=== PATIENT | male | born 1955 | race Caucasian/White ===

== ENCOUNTER 2023-10-13 09:01 | Outpatient (REF) | payer MEDICARE, SELFPAY ==
[2023-10-13 12:49] LABS: ~HepC Num1 12.93 S/CO (0.00-0.79); ~Hepatitis C Antibody Reactive (Nonreactive)
[2023-10-13 13:03] LABS: Alanine Aminotransferase 31 U/L (0-40); Albumin Level 4.4 g/dL (3.5-5.0); Alkaline Phosphatase 109 U/L (39-117); Anion Gap 16 (12-20); Aspartate Amino Transferase 24 U/L (5-37); Blood Urea Nitrogen 15 mg/dL (9-16); Calcium 9.5 mg/dL (8.4-10.2); Carbon Dioxide 23 mmol/L (22-29); Chloride 101 mmol/L (96-108); Cholesterol 92 mg/dL (<200); Estimated Glomerular Filt Rate > 60; Glucose Random 323 mg/dL (60-115); HDL Cholesterol 36 mg/dL (>40); LDL Cholesterol Calculated 38 mg/dL (<100); Potassium 4.7 mmol/L (3.3-5.1); Sodium 135 mmol/L (135-145); Total Protein 7.7 g/dL (6.5-8.0); Triglycerides 93 mg/dL (<150)
[2023-10-13 13:21] LABS: Bilirubin Total 0.2 mg/dL (0.0-1.0)
[2023-10-20 11:28] LABS: HCV Log PCR 7.63 Log IU/mL (NOT DETECTED)
== END 2023-10-13 09:02 | disposition home or self-care (01) ==
LOC: HO.HHCL 09:01
PROVIDERS: Visit Provider General Practice
DX: E11.65 Type 2 diabetes mellitus with hyperglycemia (principal); Z79.4 Long term (current) use of insulin
CPT/HCPCS: 36415; 80053; 80061; 86803; 87522

== ENCOUNTER 2023-11-02 11:11 | Outpatient (REF) | payer MEDICARE, SELFPAY ==
[2023-11-02 13:53] LABS: INTERNATIONAL NORM RATIO 0.9 (0.9-1.1); Prothrombin Time 10.6 SEC (11.1-13.3)
[2023-11-03 03:59] LABS: HIV AB/AG Nonreactive (Nonreactive); HIV Num 1 0.04 S/CO (0.00-0.99)
[2023-11-08 08:14] LABS: Hepatitis C Genotype 2
[2023-11-14 17:17] LABS: FIB-ALT 32 U/L (9-46); FIB-Alpha-2-Macroglobulin 339 mg/dL (106-279); FIB-Apolipoprotein A1 130 mg/dL (94-176); FIB-GGT 19 U/L (3-70); FIB-Haptoglobin 129 mg/dL (43-212); FIB-Total Bilirubin 0.2 mg/dL (0.2-1.2); Liver Fibrosis Score 0.38; Liver Fibrosis Stage F1-F2; Nec Inflam Act Grade A0-A1; Nec Inflam Act Score 0.18
== END 2023-11-02 11:12 | disposition home or self-care (01) ==
LOC: HO.HHCL 11:11
PROVIDERS: Visit Provider General Practice
DX: B18.2 Chronic viral hepatitis C (principal)
CPT/HCPCS: 36415; 81596; 85610; 87389; 87902

== ENCOUNTER 2024-01-25 10:18 | Outpatient (REF) | payer MEDICARE, SELFPAY ==
[2024-01-25 11:56] LABS: HBc Num1 0.07 S/CO (0.00-0.79); HBsAGNum1 0.28 S/CO (0.00-0.99); Hepatitis B Core Antibody Nonreactive (Nonreactive); Hepatitis B Surface Antigen Negative (Negative); ~Hepatitis B Surface Antibody REACTIVE (Nonreactive)
== END 2024-01-25 10:19 | disposition home or self-care (01) ==
LOC: HO.HHCL 10:18
PROVIDERS: Visit Provider Family Medicine
DX: B18.2 Chronic viral hepatitis C (principal)
CPT/HCPCS: 36415; 86704; 86706; 87340

== ENCOUNTER 2024-03-18 18:45 | Outpatient (REF) | payer MEDICARE, SELFPAY ==
[2024-03-22 11:43] LABS: Alphahydroxymidazolam,GCMS Ur NEGATIVE; Alphahydroxytriazolam, GCMS Ur NEGATIVE; Alprazolam, GCMS Urine NEGATIVE; Aminoclonazepam, GCMS Urine NEGATIVE; Flurazepam Metabolite,GCMS Ur NEGATIVE; Lorazepam GCMS Urine NEGATIVE; Nordiazepam, GCMS Urine NEGATIVE; Oxazepam, GCMS Urine NEGATIVE; Temazepam, GCMS Urine NEGATIVE
== END 2024-03-18 18:46 | disposition home or self-care (01) ==
LOC: HO.HHCLNP 18:45
PROVIDERS: Visit Provider General Practice
DX: M54.50 Low back pain, unspecified (principal); G89.29 Other chronic pain
CPT/HCPCS: 80346

== ENCOUNTER 2024-04-22 12:36 | Outpatient (REF) | payer MEDICARE, SELFPAY ==
[2024-04-23 12:10] LABS: ~HepC Num1 13.58 S/CO (0.00-0.79); ~Hepatitis C Antibody Reactive (Nonreactive)
[2024-04-24 15:13] LABS: HCV Log PCR <1.18 NOT DETECTED Log IU/mL (NOT DETECTED); HepC Viral Load <15 NOT DETECTED IU/mL (NOT DETECTED)
== END 2024-04-22 12:37 | disposition home or self-care (01) ==
LOC: HO.HHCL 12:36
PROVIDERS: Visit Provider General Practice
DX: B18.2 Chronic viral hepatitis C (principal)
CPT/HCPCS: 36415; 86803; 87522

== ENCOUNTER 2024-07-30 10:14 | Outpatient (REF) | payer MEDICARE, SELFPAY ==
--- OUTSIDE RECORDS SUMMARY | 2024-07-30 10:56 | XMS_ITS | Clinical Summary ---
Author Organization [facility] Facility Address [address] [place] [address], [place] [address] Care Team Providers Care Parakeet Raiser Name Role Phone Priya Escalante Primary Care Provider Unavail able Allergies Active Allergy Reactions Criticality Noted Date Comments Adhesive Tape 02/16/2021 Adhesive bandage Hydrochlorothiazide 09/27/2021 Hyponatremia Lisinopril 09/27/2021 Angioedema Medications acetaminophen-c odeine (TYLENOL #3) 300-30 MG per tablet Take 1 tablet by mouth every 4 (four) hours if needed for moderate pain Active amLODIPine (NORVASC) 5 MG tablet Take 5 mg by mouth 1 (one) time each day Active aspirin 325 MG tablet Take 325 mg by mouth 1 (one) time each day Active buPROPion XL (WELLBUTRIN XL) 300 MG 24 hr tablet Take 300 mg by mouth 1 (one) time each day Do not crush, chew, or split. Active cilostazol (PLETAL) 100 MG tablet Take 100 mg by mouth 2 (two) times a day Active gabapentin (NEURONTIN) 600 MG tablet Take 600 mg by mouth 3 (three) times a day Active insulin aspart protamine-insul in aspart (NovoLOG 70/30) (70-30) 100 UNIT/ML injection Inject 50 Units under the skin 2 (two) times a day before meals 52 units in AM and 42 units in PM Active metFORMIN (GLUCOPHAGE) 500 MG tablet Take 500 mg by mouth 2 (two) times a day with meals Active omeprazole (PriLOSEC) [address] capsule Take 20 mg by mouth 1 (one) time each day Do not crush or chew. Active simvastatin (ZOCOR) 40 MG tablet Take 40 mg by mouth every night Active traZODone (DESYREL) 100 MG tablet Take 100 mg by mouth every night Active lisinopril 40 MG tablet TAKE 1 TABLET BY MOUTH EVERY DAY; PLEASE STOP TAKING 30 MG TABLET 01/01/2021 Active aspirin 325 MG EC tablet TAKE 1 TABLET (325MG) BY ORAL ROUTE EVERY DAY 01/08/2021 Active Active Problems Problem Noted Date Diagnosed Date Essential (primary) hypertension 02/23/2021 Resolved Problems Problem Noted Date Diagnosed Date Resolved Date Hypo-osmolality and hyponatremia 02/23/2021 09/28/2021 Hyperkalemia 02/23/2021 09/28/2021 Immunizations Name Administration Dates Next Due Moderna SARS-COV-2 11/04/2020,10/07/2020 Family History Medical History Relation Comments Diabetes Paternal Grandmother Hypertension Paternal Grandmother Relation Status Comments Paternal Grandmother Social History Tobacco Use Types Packs/Day Years Used Date Smoking Tobacco: Former Smokeless Tobacco: Never Comments:Quit 20 yrs Alcohol Use Standard Drinks/Week Comments Not Currently 0 (1 standard drink = 0.6 oz pur e alcohol) Quit 5 yrs Sex and Gender Information Value Date Recorded Sex Assigned at Not on file Legal Sex Male 9:26 AM EDT Gender Identity Not on file Sexual Orientation Not on file Last Filed Vital Signs Vital Sign Reading Time Taken Comments Blood Pressure 158/64 02/23/2021 10:22 AM EDT Pulse 113 02/23/2021 10:22 AM EDT Temperature - - Respiratory Rate - - Oxygen Saturation 98% 02/23/2021 10:22 AM EDT Inhaled Oxygen Concentration - - Weight 81.6 kg (180 lb) 02/23/2021 10:22 AM EDT Height 180.3 cm (5' 11 ) 02/23/2021 10:22 AM EDT Body Mass Index 25.1 02/23/2021 10:22 AM EDT Plan of Treatment Health Maintenance Due Date Last Done Comments Pneumococcal Vaccine: 65+ Ye ars (1 of 2 - PCV) 10/25/1961 Colorectal Cancer Screening: Annual FOBT 2006 Colorectal Cancer Screening: Colonoscopy 2006 Colorectal Cancer Screening: Sigmoidoscopy 2006 Influenza Vaccine (#1) 2024 Hepatitis B Vaccine Aged Out No longe r eligible based on patient's age to complete this topic Insurance [place]ICARE [place] Care Teams Parakeet Raiser Relationship Specialty Start Date End Date Priya Escalante FNP PCP - General Nurse Practitioner 01/21/21
--- OUTSIDE RECORDS SUMMARY | 2024-07-30 10:56 | XMS_ITS | Encounter Summary ---
Author Organization [employer] Address [address] [facility] 7t [place] [address] Care Team Providers Care Cad Design Engineer Name Role Phone Nohemi Randolph MD Primary Care Provider [phone] Encounter Details Date Type Department Care Team (Late st Contact Info) Description 07/19/2024 Telephone [facility] MEDICINE [address] [place], [place] [phone] Barbi Mejia, RN [address] [place] [address] Social History Tobacco Use Types Packs/Day Years Used Date Smoking Tobacco: Unknown Smokeless Tobacco: Never Alcohol Use Standard Drinks/Week Comments Never 0 (1 standard drink = 0.6 oz pur e alcohol) Alcohol Answer Date Recorded Frequency of Alcohol Consumption Not on file 02/05/2024 Average Number of Drinks Not on file 024 Frequency of Binge Drinking Not on file 01/24 Score 0 02/05/2024 Depression Answer Date Recorded Patient Health Questionnaire-9 Score 4 10/03/2022 Housing Stability Answer Date Recorded What is your housing situation today? I have benita lara 02/05/[address] you li ve. Do you have problems with any of the following? None of the above 02/05/2024 Food Insecurity Answer Date Recorded Within the past 12 months, y ou worried that your food would run out before you got money to buy more: Never True 02/05/2024 Within the past 12 months,th e food you bought just didn't last and you didn't have enough money to get more: Never True 05/2024 Transportation Answer Date Recorded In the past 12 months, has l ack of transportation kept you from medical appts, meetings, work or from getting things needed for daily living? Yes, it has kept me from medical appointments or getting medications.;Yes, it has kept me from non-medical meetings, work, or getting things that I need 02/05/2024 Utilities Answer Date Recorded In the past 12 months, has t he electric, gas, oil or water company threatened to shut off services in your home? No 02/05/2024 Depression Answer Date Recorded Patient Health Questionnaire-2 Score 2 10/03/2022 Internet Access Answer Date Recorded Internet Access Q1 Yes 02/26/2024 Internet Access Q2 Not on file 02/26/2024 Sex and Gender Information Value Date Recorded Sex Assigned at Male 04/25/2022 10:18 AM EDT Legal Sex Male 10:18 AM EDT Gender Identity Male 04/25/2022 10:18 AM EDT Sexual Orientation Straight 06/24/2024 1: 55 PM EST documented as of this encounter Miscellaneous Notes * Telephone Encounter - Barbi Mejia RN - 07/22/2024 9:26 AM EST RN called pt informed of below, pt also \gave the okay to inform his daughter, who states pt will complete labs at his 07/30/24 appt. RN called pt to inform lab for test of cure is needed, no answer, LVM for return call. RN will continue to try and reach pt. * Telephone Encounter - Barbi Mejia RN - 07/19/2024 1:03 PM EST RN called pt to inform lab for test of cure is needed, no answer, LVM for return call. RN will continue to try and reach pt. documented in this encounter Plan of Treatment Upcoming Encounters Date Type Department Care Team (Late st Contact Info) Description 09/17/2024 11:00 AM EDT Office Visit [facility] MEDICINE [address] [place] [address] Nohemi Randolph MD [address] [place], [place] [phone] 10/29/2024 10:00 AM EDT Clinical Support [facility] MEDICINE [address] [place] [address] Patt Faria, RN documented as of this encounter Visit Diagnoses Not on filedocumented in this encounter Additional Health Concerns Assessment Noted Time PHQ-9 Depression Total Score: 4 10/04/19 23 2:51 PM EDT documented as of this encounter Care Teams Cad Design Engineer Relationship Specialty Start Date End Date Nohemi Randolph MD [address] [place] [address] PCP - General Family Medicine 05/17/22 documented as of this encounter
--- OUTSIDE RECORDS SUMMARY | 2024-07-30 10:56 | XMS_ITS | Encounter Summary ---
Author Organization [employer] Address [address] [place] [address] [address] [place] [address] Care Team Providers Care Pediatric Oncology Nurse Name Role Phone Nohemi Randolph MD Primary Care Provider [phone] Reason for Visit * Reason Comments Med Refill Encounter Details Date Type Department Care Team (Late st Contact Info) Description 02/01/2023 Refill [facility] MEDICINE [address] [place] [address] [phone] Nohemi Randolph MD [address] [place] [address] [phone] Social History Tobacco Use Types Packs/Day Years Used Date Smoking Tobacco: Unknown Smokeless Tobacco: Never Alcohol Use Standard Drinks/Week Comments Never 0 (1 standard drink = 0.6 oz pur e alcohol) Depression Answer Date Recorded Patient Health Questionnaire-9 Score 4 10/03/2022 Depression Answer Date Recorded Patient Health Questionnaire-2 Score 2 10/03/2022 Sex and Gender Information Value Date Recorded Sex Assigned at Male 04/25/2022 10:18 AM EDT Legal Sex Male 10:18 AM EDT Gender Identity Male 04/25/2022 10:18 AM EDT Sexual Orientation Straight 06/24/2024 1: 55 PM EST documented as of this encounter Plan of Treatment Upcoming Encounters Date Type Department Care Team (Late st Contact Info) Description 09/17/2024 11:00 AM EDT Office Visit [facility] MEDICINE [address] [place] [address] [phone] Nohemi Randolph MD [address] [place] [address] 10/29/2024 10:00 AM EDT Clinical Support [facility] MEDICINE [address] [place] [address] Patt Faria, RN documented as of this encounter Visit Diagnoses Not on filedocumented in this encounter Additional Health Concerns Assessment Noted Time PHQ-9 Depression Total Score: 4 10/04/19 23 2:51 PM EDT documented as of this encounter Care Teams Pediatric Oncology Nurse Relationship Specialty Start Date End Date Nohemi Randolph MD [address] [place] [address] PCP - General Family Medicine 05/17/22 documented as of this encounter
--- OUTSIDE RECORDS SUMMARY | 2024-07-30 10:56 | XMS_ITS | Encounter Summary ---
Author Organization [employer] Address [address] [facility] 7t [place] [address] Care Team Providers Care Retail Wireless Associate Name Role Phone Nohemi Randolph MD Primary Care Provider [phone] Reason for Visit * Reason Comments Med Refill Encounter Details Date Type Department Care Team (Late st Contact Info) Description 07/04/2024 Refill [facility] MEDICINE [address] [place], [place] [phone] Lalita Moran DO [address] [place], [place] [phone] Lumbar spondylosis Social History Tobacco Use Types Packs/Day Years [...] your housing situation today? I have benita sing 02/05/[address] you li [...] Description 09/17/2024 11:00 AM EDT Office Visit [address] [address] Nohemi Randolph MD [address] [place] [address] 10/29/2024 10:00 AM EDT Clinical Support [address] [address] Patt Faria, STEPHANIE documented as of this encounter Visit Diagnoses Diagnosis Lumbar spondylosis Lumbosacral spondylosis without myelopathy documented in this encounter Additional Health Concerns Assessment Noted Time PHQ-9 Depression Total Score: 4 10/04/19 23 2:51 PM EDT documented as of this encounter Care Teams Retail Wireless Associate Relationship Specialty Start Date End Date Nohemi Randolph MD [address] [place] [phone] PCP - General Family Medicine 05/17/22 documented as of this encounter
--- OUTSIDE RECORDS SUMMARY | 2024-07-30 10:56 | XMS_ITS | Encounter Summary ---
Author Organization [employer] Address [address] [facility] 7t [place] [address] Care Team Providers Care Reworker Name Role Phone Nohemi Randolph MD Primary Care Provider [phone] Reason for Visit * Reason Onset Date Comments Appointment Request 03/27/2024 Encounter Details Date Type Department Care Team ([facility] st Contact Info) Description 03/27/2024 Telephone [facility] MEDICINE [address] [place] [address] Nohemi Randolph MD [address] [place], [place] [phone] Appointment Request Social History Tobacco Use Types Packs/Day Years [...] encounter Miscellaneous Notes * Telephone Encounter - Yina Kwan - 03/27/2024 2:04 PM EDT Tc from pt daughter Emerald requesting to r/s follow up (04/03) Stated pt can only be seen on Mon or Monday. documented in this encounter Plan of Treatment Upcoming Encounters Date Type Department Care Team (Late st Contact Info) Description 09/17/2024 11:00 AM EDT Office Visit [facility] MEDICINE [address] [place] [address] Nohemi Randolph MD [address] [place] [address] 10/29/2024 10:00 AM EDT Clinical Support [facility] MEDICINE [address] [place] [address] Patt Faria, STEPHANIE documented as of this encounter Visit Diagnoses Not on filedocumented in this encounter Additional Health Concerns Assessment Noted Time PHQ-9 Depression Total Score: 4 10/04/19 23 2:51 PM EDT documented as of this encounter Care Teams Reworker Relationship Specialty Start Date End Date Nohemi Randolph MD [address] [place] [address] PCP - General Family Medicine 05/17/22 documented as of this encounter
--- OUTSIDE RECORDS SUMMARY | 2024-07-30 10:56 | XMS_ITS | Encounter Summary ---
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 Prescribed Acetaminophen-codeine 300/30mg Q8hr PRN. States he takes 2 doses a day. States he last took T3 last night. Continues to deny smoking cigarettes, ETOH use and illicit drug use. He smokes marijuana about 3 times daily. He denies having a medical marijuana card and said his son gets his marijuana for him from a dispensary. Currently rates his pain a 7 and states medication is 25% effective at alleviating his pain. Current pain site is his lower back. O: STAMPING MILL TENDER Tier 2. Pt currently prescribed Acetaminophen-codeine 300/30mg Q8hr PRN. CAREER SERVICES COORDINATOR verified today.Rx last filled on 07/11/24. Pill count performed. Patient has 7 T3 remaining, anticipated he would have 0. Medication is not over used by patient. UTOX completed. Positive for MOP & THC , Negativefor AMP, BAR, BUP, BZO, CARL, FTY, MDMA, MET, MTD, OXY, PCP, TCA. UTOX as expected. BPI updated today. Pain severity score of 7.3, activity interference score of 6.7. Previous BPI completed 11/28/23 with pain severity score of 7.8, activity interference score of 6.7. Will update PCP with BPI scoring and request T3 refill. Last PCP visit was 04/22/24. A: STAMPING MILL TENDER Contract Revisit: Chronic Opioid use related to pain. P: Pt to continue taking medication only as prescribed; Next STAMPING MILL TENDER RV appointment scheduled for 10/29/24 @ 10a, F/U sooner PRN. Appointment reminder given. Pt verbalized understanding and agreed to plan. documented in this encounter Plan of Treatment Upcoming Encounters Date Type Department Care Team (Late st Contact Info) Description 09/17/2024 11:00 AM EDT Office Visit [address] [address] Nohemi Randolph MD [address] [place] [address] 10/29/2024 10:00 AM EDT Clinical Support [address] [address] Patt Faria, RN documented as of this encounter Procedures Procedure Name Priority Date/Time Associated Diagnosis Comments POCT AMISH-14 URINE DRUG SCREEN Routine 07/30/2024 10:51 AM EST Chronic bilateral low back pain without sciatica documented in this encounter Results * POCT AMISH-14 Urine Drug Screen (07/30/2024 10:51 AM EST) THC Positive Opiate Screen, Urine Positive Urine Urine specimen obtained by clean catch procedure / Unknown 07/30/2024 10:51 AM EST Patt Vincent RN - 07/30/2024 10:51 AM EST UTOX cup Lot#[id number] Exp. 03/20/26 Internal Pass Control Nohemi Randolph MD POINT OF CARE TEST ENTER/EDIT ORDERABLES Final Result documented in this encounter Visit Diagnoses Diagnosis Chronic bilateral low back pain without sciatica- Primary documented in this encounter Additional Health Concerns Assessment Noted Time PHQ-9 Depression Total Score: 4 10/04/19 23 2:51 PM EDT documented as of this encounter Care Teams Rock Loader Relationship Specialty Start Date End Date Nohemi Randolph MD [address] [place] [address] PCP - General Family Medicine 05/17/22 documented as of this encounter
--- OUTSIDE RECORDS SUMMARY | 2024-07-30 10:56 | XMS_ITS | Encounter Summary ---
Author Organization [employer] Address [address] [facility] 7t [place] [address] Care Team Providers Care Green End Worker Name Role Phone Nohemi Randolph MD Primary Care Provider [phone] Reason for Visit * Reason Onset Date Comments Recommend MANAGER Tier 2 07/30/2024 Encounter Details Date Type Department Care Team ([facility] st Contact Info) Description 07/30/2024 Telephone [facility] MEDICINE [address] [place] [address] Patt Faria, STEPHANIE Recommend MANAGER Tier 2 Social History Tobacco Use Types Packs/Day Years [...] encounter Miscellaneous Notes * Telephone Encounter - Patt Faria RN - 07/30/2024 7:36 AM EST What MANAGER Tier would you like this patient to be? I recommend Tier 2, please let me know if you agree or would rather patient be in another MANAGER Tier. Tier 1 = HIGH RISK, Monthly MANAGER visits Tier 2 = MODerate RISK, Q3 Month visits Tier 3 = LOW RISK = Q4-6 month visits documented in this encounter Plan of Treatment Upcoming Encounters Date Type Department Care Team (Late st Contact Info) Description 09/17/2024 11:00 AM EDT Office Visit [facility] MEDICINE [address] [place] [address] Nohemi Randolph MD [address] [place] [address] 10/29/2024 10:00 AM EDT Clinical Support [facility] MEDICINE [address] [place] [address] Patt Faria RN documented as of this encounter Visit Diagnoses Not on filedocumented in this encounter Additional Health Concerns Assessment Noted Time PHQ-9 Depression Total Score: 4 10/04/19 23 2:51 PM EDT documented as of this encounter Care Teams Green End Worker Relationship Specialty Start Date End Date Nohemi Randolph MD [address] [place] [address] PCP - General Family Medicine 05/17/22 documented as of this encounter
--- OUTSIDE RECORDS SUMMARY | 2024-07-30 10:56 | XMS_ITS | Encounter Summary ---
Author Organization [employer] Address [address] [facility] 7t [place] [address] Care Team Providers Care Revenue Integrity Analyst Name Role Phone Nohemi Randolph MD Primary Care Provider [phone] Reason for Visit * Reason Onset Date Comments Med Refill BPI Scoring 11/28/2023 Encounter Details Date Type Department Care Team (Late st Contact Info) Description 11/28/2023 Refill [facility] MEDICINE [address] [place], [place] [phone] Nohemi Randolph MD [address] [place], [place] [phone] Lumbar spondylosis Social History Tobacco Use Types Packs/Day Years Used Date Smoking Tobacco: Unknown Smokeless Tobacco: Never Alcohol Use Standard Drinks/Week Comments Never 0 (1 standard drink = 0.6 oz pur e alcohol) Depression Answer Date Recorded Patient Health Questionnaire-9 Score 4 10/03/2022 Housing Stability Answer Date Recorded What is your housing situation today? I have benita lara 04/13/[address] you li ve. Do you have problems with any of the following? None of the above 04/13/2023 Food Insecurity Answer Date Recorded Within the past 12 months, y ou worried that your food would run out before you got money to buy more: Never True 04/13/2023 Within the past 12 months,th e food you bought just didn't last and you didn't have enough money to get more: Never True Transportation Answer Date Recorded In the past 12 months, has l ack of transportation kept you from medical appts, meetings, work or from getting things needed for daily living? No 04/13/2023 Utilities Answer Date Recorded In the past 12 months, has t he electric, gas, oil or water company threatened to shut off services in your home? No 04/13/2023 Depression Answer Date Recorded Patient Health Questionnaire-2 Score 2 10/03/2022 Sex and Gender Information Value Date Recorded Sex Assigned at Male 04/25/2022 10:18 AM EDT Legal Sex Male 10:18 AM EDT Gender Identity Male 04/25/2022 10:18 AM EDT Sexual Orientation Straight 06/24/2024 1: 55 PM EST documented as of this encounter Miscellaneous Notes * Telephone Encounter - Patt Faria RN - 11/28/2023 10:28 AM EDT Pt had TOBACCO PREVENTION HEALTH EDUCATOR Renewal appt today BPI updated Pain severity score of 7.8, activity interference score of 6.7. Previous BPI completed 05/25/23 with pain severity score of 6.8, activity interference score of 9.3. documented in this encounter Plan of Treatment Upcoming Encounters Date Type Department Care Team (Late st Contact Info) Description 09/17/2024 11:00 AM EDT Office Visit [facility] MEDICINE [address] [place] [address] Nohemi Randolph MD [address] [place] [address] 10/29/2024 10:00 AM EDT Clinical Support [facility] MEDICINE [address] [place] [address] Patt Faria, RN documented as of this encounter Visit Diagnoses Diagnosis Lumbar spondylosis Lumbosacral spondylosis without myelopathy documented in this encounter Additional Health Concerns Assessment Noted Time PHQ-9 Depression Total Score: 4 10/04/19 23 2:51 PM EDT documented as of this encounter Care Teams Revenue Integrity Analyst Relationship Specialty Start Date End Date Nohemi Randolph MD [address] [place] [address] PCP - General Family Medicine 05/17/22 documented as of this encounter
--- OUTSIDE RECORDS SUMMARY | 2024-07-30 10:56 | XMS_ITS | Encounter Summary ---
Author Organization [employer] Address [address] [facility] 7t [place] [address] Care Team Providers Care Kayaking Instructor Name Role Phone Nohemi Randolph MD Primary Care Provider [phone] Reason for Visit * Reason Onset Date Comments Med Refill 07/30/2024 Encounter Details Date Type Department Care Team (Late st Contact Info) Description 07/30/[address] [facility] MEDICINE [address] [place] [address] Patt Faria RN Social History Tobacco Use Types Packs/Day Years [...] Description 09/17/2024 11:00 AM EDT Office Visit [address] [address] Nohemi Randolph MD [address] [place] [address] 10/29/2024 10:00 AM EDT Clinical Support [address] [address] Patt Faria, STEPHANIE documented as of this encounter Visit Diagnoses Not on filedocumented in this encounter Additional Health Concerns Assessment Noted Time PHQ-9 Depression Total Score: 4 10/04/19 23 2:51 PM EDT documented as of this encounter Care Teams Kayaking Instructor Relationship Specialty Start Date End Date Nohemi Randolph MD [address] [place] [address] PCP - General Family Medicine 05/17/22 documented as of this encounter
--- OUTSIDE RECORDS SUMMARY | 2024-07-30 10:56 | XMS_ITS | Encounter Summary ---
Author Organization [employer] Address [address] [facility] 7t [place] [address] Care Team Providers Care Director Of Programming Name Role Phone Nohemi Randolph MD Primary Care Provider [phone] Reason for Visit * Reason Onset Date Comments Med Refill 07/11/2023 Encounter Details Date Type Department Care Team ([facility] st Contact Info) Description 07/11/2023 Telephone [facility] MEDICINE [address] [place] [address] Nohemi Randolph MD [address] [place], [place] [phone] Med Refill Social History Tobacco Use Types Packs/Day Years [...] encounter Miscellaneous Notes * Telephone Encounter - Lalita Sullivan LPN - 07/11/2023 12:48 PM EST DIRECTOR MANUFACTURING ENGINEERING checked on 07/11/23. Last filled on 04/05/23 patient should still have 1 refill left. * Telephone Encounter - Chrystal Huang - 07/11/2023 12:39 PM EST TC from pt requesting medication refill. Medications needing refill : gabapentin (Neurontin) 600 MG tablet To be sent to: [facility]/pharmacy #[id number] [facility] [phone] [place] [address] documented in this encounter Plan of Treatment Upcoming Encounters Date Type Department Care Team (Late st Contact Info) Description 09/17/2024 11:00 AM EDT Office Visit [facility] MEDICINE [address] [place] [address] Nohemi Randolph MD [address] [place] [address] 10/29/2024 10:00 AM EDT Clinical Support [address] [phone] Patt Faria, RN documented as of this encounter Visit Diagnoses Not on filedocumented in this encounter Additional Health Concerns Assessment Noted Time PHQ-9 Depression Total Score: 4 10/04/19 23 2:51 PM EDT documented as of this encounter Care Teams Director Of Programming Relationship Specialty Start Date End Date Nohemi Randolph MD [address] [place] [address] PCP - General Family Medicine 05/17/22 documented as of this encounter
--- OUTSIDE RECORDS SUMMARY | 2024-07-30 10:56 | XMS_ITS | Encounter Summary ---
Author Organization [email or web address] Address [address] [facility] 7t [place] [address] Care Team Providers Care Director Professional Services Name Role Phone Nohemi Randolph MD Primary Care Provider [phone] Encounter Details Date Type Department Care Team (Late st Contact Info) Description 07/03/2024 Refill [facility] MEDICINE [address] [place], [place] [phone] Nohemi Randolph MD [address] [place], [place] [phone] Type 2 diabetes mellitus with hyperglycemia, with long-term current use of insulin ([facility]) (Primary Dx) Social History Tobacco Use Types [...] Description 09/17/2024 11:00 AM EDT Office Visit [facility] MEDICINE [address] [place] [address] Nohemi Randolph MD [address] [place] [address] 10/29/2024 10:00 AM EDT Clinical Support [facility] MEDICINE [address] [place] [address] Patt Faria, RN documented as of this encounter Visit Diagnoses Diagnosis Type 2 diabetes mellitus with hyperglycemia, with long-term current use of insulin ([facility])- Primary documented in this encounter Additional Health Concerns Assessment Noted Time PHQ-9 Depression Total Score: 4 10/04/19 23 2:51 PM EDT documented as of this encounter Care Teams Director Professional Services Relationship Specialty Start Date End Date Nohemi Randolph MD [address] [place] [address] PCP - General Family Medicine 05/17/22 documented as of this encounter
--- OUTSIDE RECORDS SUMMARY | 2024-07-30 10:56 | XMS_ITS | Encounter Summary ---
Author Organization [employer] Address [address] [place] [address] 7t [place] [address] Care Team Providers Care Afterschool Babysitter Name Role Phone Nohemi Randolph MD Primary Care Provider [phone] Reason for Visit * Reason Comments Med Refill Encounter Details Date Type Department Care Team (Late Contact Info) Description 11/02/2022 Refill [facility] MEDICINE [address] [place] [address] [phone] Nohemi Randolph MD [address] [place] [address] [phone] Social History Tobacco Use Types Packs/Day Years [...] Orientation Straight 06/24/2024 1: 55 PM EST COVID-19 Exposure Response Date Recorded In the last 10 days, have yo u been in contact with someone who was confirmed or suspected to have Coronavirus/COVID-19? No / Unsure 10/03/2022 2:30 PM EDT documented as of this encounter Plan of Treatment Upcoming Encounters Date Type Department Care Team (Late Contact Info) Description 09/17/2024 11:00 AM EDT Office Visit [facility] MEDICINE [address] [place] [address] Nohemi Randolph MD [address] [place] [address] 10/29/2024 10:00 AM EDT Clinical Support [facility] MEDICINE [address] [place] [address] Patt Faria RN documented as of this encounter Visit Diagnoses Not on filedocumented in this encounter Additional Health Concerns Assessment Noted Time PHQ-9 Depression Total Score: 4 10/04/19 23 2:51 PM EDT documented as of this encounter Care Teams Afterschool Babysitter Relationship Specialty Start Date End Date Nohemi Randolph MD [address] [place] [address] PCP - General Family Medicine 05/17/22 documented as of this encounter
--- OUTSIDE RECORDS SUMMARY | 2024-07-30 10:56 | XMS_ITS | Encounter Summary ---
Author Organization [employer] Address [address] [facility] 7t [place] [address] Care Team Providers Care Marketing Development Representative Name Role Phone Nohemi Randolph MD Primary Care Provider [phone] Reason for Visit * Reason Comments Med Change Request Encounter Details Date Type Department Care Team (Late st Contact Info) Description 07/03/2024 Refill [facility] MEDICINE [address] [place], [place] [phone] Nohemi Randolph MD [address] [place], [place] [phone] Type 2 diabetes mellitus with hyperglycemia, with long-term current use of insulin ([facility]) Social History Tobacco Use Types Packs/Day Years [...] Description 09/17/2024 11:00 AM EDT Office Visit [facility] MEDICINE [address] [place] [address] Nohemi Randolph MD [address] [place] [address] 10/29/2024 10:00 AM EDT Clinical Support [facility] MEDICINE [address] [place] [address] Patt Faria, STEPHANIE documented as of this encounter Visit Diagnoses Diagnosis Type 2 diabetes mellitus with hyperglycemia, with long-term current use of insulin ([facility]) documented in this encounter Additional Health Concerns Assessment Noted Time PHQ-9 Depression Total Score: 4 10/04/19 23 2:51 PM EDT documented as of this encounter Care Teams Marketing Development Representative Relationship Specialty Start Date End Date Nohemi Randolph MD [address] [place] [address] PCP - General Family Medicine 05/17/22 documented as of this encounter
--- OUTSIDE RECORDS SUMMARY | 2024-07-30 10:56 | XMS_ITS | Encounter Summary ---
Author Organization [employer] Address [address] [place] [address] 7t [place] [address] Care Team Providers Care Bill Of Materials Clerk Name Role Phone Nohemi Randolph MD Primary Care Provider [phone] Encounter Details Date Type Department Care Team (Late st Contact Info) Description 08/23/2022 Orders Only [facility] [address] [place], [place] [phone] Lalita Sullivan LPN Social History Tobacco Use Types Packs/Day Years Used Date Smoking Tobacco: Never Assessed Sex and Gender Information Value Date Recorded Sex Assigned at Male 04/25/2022 10:18 AM EDT Legal Sex Male 10:18 AM EDT Gender Identity Male 04/25/2022 10:18 AM EDT Sexual Orientation Straight 06/24/2024 1: 55 PM EST documented as of this encounter Plan of Treatment Upcoming Encounters Date Type Department Care Team (Late st Contact Info) Description 09/17/2024 11:00 AM EDT Office Visit [address] [address] Nohemi Randolph MD [address] [place] [address] 10/29/2024 10:00 AM EDT Clinical Support [address] [address] Patt Faria, RN documented as of this encounter Visit Diagnoses Not on filedocumented in this encounter Care Teams Bill Of Materials Clerk Relationship Specialty Start Date End Date Nohemi Randolph MD [address] [place] [phone] PCP - General Family Medicine 05/17/22 documented as of this encounter
--- OUTSIDE RECORDS SUMMARY | 2024-07-30 10:56 | XMS_ITS | Encounter Summary ---
Author Organization [email or web address] Address 75 [facility] 7t [place] [address] Care Team Providers Care Sample Coordinator Name Role Phone Nohemi Randolph MD Primary Care Provider Encounter Details Date Type Department Care Team (Late st Contact Info) Description 05/08/2024 Orders Only [facility] MEDICINE [address] [place], [place] [phone] Nohemi Randolph MD [address] [place], [place] [phone] Social History Tobacco Use Types Packs/Day Years [...] Description 09/17/2024 11:00 AM EDT Office Visit [address] [address] Nohemi Randolph MD [address] [place] [address] 10/29/2024 10:00 AM EDT Clinical Support [address] [address] Patt Faria, STEPHANIE documented as of this encounter Visit Diagnoses Not on filedocumented in this encounter Additional Health Concerns Assessment Noted Time PHQ-9 Depression Total Score: 4 10/04/19 23 2:51 PM EDT documented as of this encounter Care Teams Sample Coordinator Relationship Specialty Start Date End Date Nohemi Randolph MD [address] [place] [address] PCP - General Family Medicine 05/17/22 documented as of this encounter
--- OUTSIDE RECORDS SUMMARY | 2024-07-30 10:56 | XMS_ITS | Encounter Summary ---
Author Organization [employer] Address [address] [facility] 7t [place] [address] Care Team Providers Care Global Marketing Operations Manager Name Role Phone Nohemi Randolph MD Primary Care Provider [phone] Encounter Details Date Type Department Care Team (Latest Contact Info) Description 07/30/2024 Travel Social History Tobacco Use Types Packs/Day Years [...] is your housing situation today? I have benitahumaira lara 02/05/[address] you [...] Description 09/17/2024 11:00 AM EDT Office Visit [facility] MEDICINE [address] [place] [address] Nohemi Randolph MD [address] [place] [address] 10/29/2024 10:00 AM EDT Clinical Support [facility]INE [address] [place] [address] Patt Faria, STEPHANIE documented as of this encounter Visit Diagnoses Not on filedocumented in this encounter Additional Health Concerns Assessment Noted Time PHQ-9 Depression Total Score: 4 10/04/19 23 2:51 PM EDT documented as of this encounter Care Teams Global Marketing Operations Manager Relationship Specialty Start Date End Date Nohemi Randolph MD [address] [place] [address] PCP - General Family Medicine 05/17/22 documented as of this encounter
--- OUTSIDE RECORDS SUMMARY | 2024-07-30 10:56 | XMS_ITS | Encounter Summary ---
Author Organization [employer] Address [address] [facility] 7t [place] [address] Care Team Providers Care Inside Sales Director Name Role Phone Nohemi Randolph MD Primary Care Provider [phone] Reason for Visit * Reason Onset Date Comments Durable Medical Equipment 10/17/2022 Encounter Details Date Type Department Care Team ([facility] st Contact Info) Description 10/17/[address] [facility] MEDICINE [address] [place], [place] [phone] Nohemi Randolph MD [address] [place], [place] [phone] Durable Medical Equipment Social History Tobacco Use Types Packs/Day Years [...] suspected to have Coronavirus/COVID-19? No / Unsure 11/28/2022 1:47 PM EDT documented as of this encounter Miscellaneous Notes * Telephone Encounter - Gita Storey - 10/17/2022 2:04 PM EDT TC to patient regarding message below and he stated is not compression stocking is a script for DM shoes. I informed him that yes script for DM shoes was received and faxed to [facility]. * Telephone Encounter - Germaine Rm - 10/17/2022 1:27 PM EDT Tc from pt requesting status on script for compression socks , States discussed with PCP on last visit, and will need office notes faxed. Please contact at [phone] [place] documented in this encounter Plan of Treatment Upcoming Encounters Date Type Department Care Team (Late st Contact Info) Description 09/17/2024 11:00 AM EDT Office Visit [address] [address] Nohemi Randolph MD [address] [place] [address] 10/29/2024 10:00 AM EDT Clinical Support [address] [address] Patt Faria, STEPHANIE documented as of this encounter Visit Diagnoses Not on filedocumented in this encounter Additional Health Concerns Assessment Noted Time PHQ-9 Depression Total Score: 4 10/04/19 23 2:51 PM EDT documented as of this encounter Care Teams Inside Sales Director Relationship Specialty Start Date End Date Nohemi Randolph MD [address] [place] [address] PCP - General Family Medicine 05/17/22 documented as of this encounter
--- OUTSIDE RECORDS SUMMARY | 2024-07-30 10:56 | XMS_ITS | Encounter Summary ---
Author Organization [employer] Address [address] [facility] 7t [place] [address] Care Team Providers Care Ct Scan Tech Name Role Phone Nohemi Randolph MD Primary Care Provider [phone] Reason for Visit * Reason Comments Med Refill Encounter Details Date Type Department Care Team (Late st Contact Info) Description 05/18/2024 Refill [facility] MEDICINE [address] [place], [place] [phone] Nohemi Randolph MD [address] [place], [place] [phone] Type 2 diabetes mellitus with hyperglycemia, with long-term current use of insulin ([facility]) Social History Tobacco Use Types Packs/Day Years [...] Description 09/17/2024 11:00 AM EDT Office Visit [facility] MEDICINE [address] [place] [address] Nohemi Randolph MD [address] [place] [address] 10/29/2024 10:00 AM EDT Clinical Support [facility] MEDICINE [address] [place] [address] Patt Faria, STEPHANIE documented as of this encounter Visit Diagnoses Diagnosis Type 2 diabetes mellitus with hyperglycemia, with long-term current use of insulin ([facility]) documented in this encounter Additional Health Concerns Assessment Noted Time PHQ-9 Depression Total Score: 4 10/04/19 23 2:51 PM EDT documented as of this encounter Care Teams Ct Scan Tech Relationship Specialty Start Date End Date Nohemi Randolph MD [address] [place] [phone] PCP - General Family Medicine 05/17/22 documented as of this encounter
--- OUTSIDE RECORDS SUMMARY | 2024-07-30 10:56 | XMS_ITS | Clinical Summary ---
Author Organization [employer] Address [address] [facility] [address] [place] [address] Care Team Providers Care Lens Examiner Name Role Phone Nohemi Randolph MD Primary Care Provider [phone] Allergies Active Allergy Reactions Criticality Noted Date Comments Hydrochlorothiazide 09/27/2021 Other reaction(s): hyponatremia Hyponatremia Hyponatremia Lisinopril Angioedema High 01/21/2021 Angioedema Angioedema Medications Blood Glucose Monitoring Suppl (Point InsideToFusionOne Verio) w/Device kitIndications:Ty pe 2 diabetes mellitus with diabetic peripheral angiopathy without gangrene, with long-term current use of insulin ([facility]) 1 each 3 times daily. TEST BLOOD SUGAR 3 TIMES A DAY 1 kit 024 Active glucose blood (Point InsideTouch Verio) test strip TEST BLOOD SUGAR 3 TIMES A DAY 100 each 11 024 2024 Active NIFEdipine CC (Adalat CC) 60 MG 24 hr tablet TAKE 1 TABLET BY MOUTH IN THE MORNING. DO NOT CRUSH, CHEW, OR SPLIT. 90 tablet 3 024 Active brimonidine (AlphaGAN P) 0.2 % ophthalmic solution INSTILL 1 DROP INTO THE RIGHT EYE 3 TIMES A DAY 023 Active dorzolamide-timol ol (Cosopt) 2-0.5 % ophthalmic solution INSTILL 1 DROP INOT THE RIGHT EYE 3 TIMES A DAY 023 Active latanoprost (Xalatan) 0.005 % ophthalmic solution INSTILL 1 DROP INTO THE RIGHT EYE AT BEDTIME 024 Active atenolol (Tenormin) 25 MG tablet Take 1 tablet (25 mg) by mouth in the morning. 90 tablet 3 024 2024 Active aspirin 325 MG EC tablet TAKE 1 TABLET (325 MG) BY MOUTH IN THE MORNING 90 tablet 3 Active atropine 1 % ophthalmic solution INSTILL 1 DROP INTO THE RIGHT EYE TWICE DAILY Active prednisoLONE acetate (Pred-Forte) 1 % ophthalmic suspension PLEASE SEE ATTACHED FOR DETAILED DIRECTIONS Active gabapentin (Neurontin) 600 MG tabletIndications :Lumbar spondylosis TAKE 1 TABLET BY MOUTH 3 TIMES DAILY. 270 tablet 1 Active traZODone (Desyrel) 100 MG tablet TAKE 1 TABLET BY MOUTH EVERYDAY AT BEDTIME 90 tablet 1 Active cilostazol (Pletal) 100 MG tablet TAKE 1 TABLET BY MOUTH DAILY 1/2 HOUR BEFORE OR 2 HOURS AFTER BREAKFAST AND DINNER 180 tablet 3 Active buPROPion XL (Wellbutrin XL) 300 MG 24 hr tabletIndications :Major depressive disorder, remission status unspecified, unspecified whether recurrent TAKE 1 TABLET (300 MG) BY MOUTH IN THE MORNING . DO NOT CRUSH, CHEW, OR SPLIT 90 tablet 3 Active pantoprazole (Protonix) 40 MG EC tablet Take 1 tablet (40 mg) by mouth before breakfast. Do not crush, chew, or split. 90 tablet 1 024 2024 Active clopidogrel (Plavix) 75 MG tablet Take 75 mg by mouth Once per day. Active Continuous Glucose Child Development Professor (Think Good ThoughtsStyle Justo 2 [place]) device Use to scan sensor at least every 8 hours, as directed, for CGM 1 each Active Lancets (OneTouch Delica Plus [id number]) misc 1 each 3 times daily. TEST BLOOD SUGAR 3 TIMES A DAY 100 each 11 Active glucose 4 g chewable tablet Chew 4 tablets (16 g) if needed for low blood sugar. 40 tablet 5 024 2024 Active atorvastatin (Lipitor) 80 MG tabletIndications :Type 2 diabetes mellitus with hyperglycemia, with long-term current use of insulin ([facility]),Other hyperlipidemia Take 1 tablet (80 mg) by mouth Once per day. 90 tablet 1 Active insulin aspart protamine-insulin aspart (NovoLOG MIX 70/30) (70-30) 100 UNIT/ML injection Inject 56 Units under the skin with breakfast and with evening meal. 40 mL 1 Active empagliflozin-met FORMIN ER (Synjardy XR) 12.5-1000 MG 24 hr tabletIndications :Type 2 diabetes mellitus with hyperglycemia, with long-term current use of insulin ([facility]),Microal buminuria due to type 2 diabetes mellitus ([facility]) ([facility]) Take 2 tablets by mouth with breakfast. 60 tablet 2024 Active Additional Information Patient not taking.Reason: Other (Endocrinology recomenddation), Reported on 07/30/2024 insulin syringe (B-D INSULIN SYRINGE) 29G X 1/2 1 mL [facility] USE TO INJECT INSULIN TWICE DAILY 100 each Active Continuous Glucose Sensor (FreeStyle Justo 2 Sensor) miscIndications:T ype 2 diabetes mellitus with hyperglycemia, with long-term current use of insulin ([facility]) Apply 1 sensor, as directed, every 14 days for CGM 2 each Active FreeStyle Precision Bakari Test test stripIndications: Type 2 diabetes mellitus with hyperglycemia, with long-term current use of insulin ([facility]) USE TO TEST BLOOD SUGAR UP TO 3 TIMES DAILY, DIRECTED 100 strip 11 Active acetaminophen-cod eine (Tylenol w/ Codeine #3) 300-30 MG tabletIndications :Lumbar spondylosis TAKE 1 TABLET BY MOUTH EVERY 8 HOURS NEEDED FOR SEVERE PAIN. 42 tablet 025 2024 Active metFORMIN XR (Glucophage-XR) 500 MG 24 hr tablet Take 1,000 mg by mouth every 12 (twelve) hours. 025 2025 Active Continuous Glucose Sensor (FreeStyle Justo 2 Sensor) [facility] Apply 1 sensor, as directed, every 14 days for CGM 2 each 024 2024 Discontinued(R eorder (will not trigger notification to Pharmacy)) glucose blood (FreeStyle Precision Bakari Test) test strip Use to test blood sugar up to 3 times daily, as directed 100 each 024 2024 Discontinued(R eorder (will not trigger notification to Pharmacy)) acetaminophen-cod eine (Tylenol w/ Codeine #3) 300-30 MG tabletIndications :Lumbar spondylosis TAKE 1 TABLET BY MOUTH EVERY 8 HOURS NEEDED FOR SEVERE PAIN. 42 tablet 024 2024 Discontinued glucose blood (FreeStyle Precision Bakari Test) test stripIndications: Type 2 diabetes mellitus with hyperglycemia, with long-term current use of insulin ([facility]) Use to test blood sugar up to 3 times daily, as directed 100 each 11 025 2024 Discontinued Active Problems Problem Noted Date Diagnosed Date Other acute osteomyelitis, left ankle and foot 0 10/05/2023 Chronic bilateral low back pain without sciatica 10/05/2023 Assessment & Plan (10/05/2023 6:21 AM EDT): On T3 with pain contract Pain is uncontrolled and prevents him from doing what he needs Hospital discharge follow-up 10/05/2022 Amputation of left forefoot 10/05/2022 Assessment & Plan (02/09/2024 9:04 AM EDT): For gait issues related to amputation, ideally would do PT for gait retraining, and with new DM2 shoes Pt is trying to get [facility] and when he has this coverage, will refer for DM2 shoes and PT for gait training Assessment & Plan (10/05/2022 9:33 AM EDT): Healing without current signs of infection Order for diabetic shoes placed History of amputation of lesser toe of both feet 09/11/2022 Assessment & Plan (02/09/2024 9:00 AM EDT): Will follow with me for callus treatment To soak daily to soften Lumbar spondylosis 09/11/2022 Assessment & Plan (02/09/2024 9:02 AM EDT): Patient is on T3 for pain, ok to take this with Epclusa Refill sent Pt on [facility] agreement with q3 month utox/pill count Assessment & Plan (10/05/2022 9:33 AM EDT): Met with [facility] nurse Patt and set up for appointments Ok to resume T3 at previous dosing of three times daily if he can meet requirements of [facility] program Age-related nuclear cataract of both eyes 2019 Assessment & Plan (02/09/2024 9:02 AM EDT): Continue followup with [facility] for 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 Microalbuminuria due to type 2 diabetes mellitus ([facility]) 12/19/2019 Depressive disorder 05/29/2019 Hyperlipidemia 09/17/2018 Essential hypertension 07/30/2018 Assessment & Plan (02/09/2024 9:00 AM EDT): At goal today Continue Nifedipine 60mg Had angioedema with Lisinopril Add Atenolol as he also had hyponatremia with HCTZ Assessment & Plan (10/05/2023 6:31 AM EDT): Not at goal, on Nifedipine Had angioedema with Lisinopril Add Atenolol as he also had hyponatremia with HCTZ Assessment & Plan (10/05/2022 9:34 AM EDT): Not at goal Continue Nifedipine 60mg daily, refills placed May need increase to 90mg daily Discontinue Amlodipine from his medication list Peripheral vascular disease 07/30/2018 Cataract 08/30/2012 Erectile dysfunction 12/29/2011 History of alcohol abuse 12/19/2011 Microalbuminuria 12/19/2011 Atherosclerosis of coronary artery 12/09/2011 Diabetes mellitus, type 2 12/09/2011 Assessment & Plan (04/26/2024 3:40 PM EDT): Not at goal A1C 10.7 Increase Novolog 70/30 to 52 units BID Continue Metformin 1000mg BID Continue Jardiance 25 mg for renal protection Refer to CDTM for closer blood sugar mgmt Assessment & Plan (03/12/2024 3:50 PM EDT): Not at goal A1C 11.2 Continue Novolog 70/30 42 units BID Continue Metformin 1000mg BID Increase Jardiance to 25 mg for renal protection Followup in one month for repeat A1C Assessment & Plan (02/09/2024 9:01 AM EDT): Not at goal A1C 11.2 Script sent for Novolog 70/30 42 units BID Continue Metformin 1000mg BID Add Jardiance 10mg for renal protection Reminded to get labs today Needs help with transptaion Assessment & Plan (10/05/2023 6:32 AM EDT): Not at goal A1C 10.1 Continue Novolog 52/42 units Continue Metformin 1000mg BID Add Jardiance 10mg for renal protection Reminded to get labs today Needs help with transptaion Assessment & Plan (10/05/2022 9:31 AM EDT): Not at goal A1C 10.1 Increase insulin premix to 50 unit and 50 units Referred to DM2 management with DM2 educator Idiopathic peripheral neuropathy 12/09/2011 Peripheral arterial occlusive disease 12/09/2011 Assessment & Plan (10/05/2023 6:19 AM EDT): Saw vascular surgeon Dr Godinez at [facility] 09/22/22 Continue ongoing followup at their outpt clinic Continue Cilostazol Assessment & Plan (10/05/2022 9:30 AM EDT): Saw vascular surgeon Dr Godinez at [facility] 09/22/22 Continue ongoing followup at their outpt clinic Continue wound dressings with [employer]TER No signs currently of infection Encounters Date Type Department Care Team Description 07/30/2024 9:30 AM EST Clinical Support [facility]INE [address] [place] [phone] Patt Faria, incinerator attendant bilateral low back pain without sciatica (Primary Dx) 07/30/[address] [address] Patt Faria, RN 07/30/2024 Travel 07/30/[address] [address] Patt Faria, RN Recommend [facility] Tier 2 07/19/[address] [place] [address] Barbi Mejia, STEPHANIE 07/05/2024 Orders Only [facility] [place] [address] Brynn Chawla RN Chronic hepatitis C without hepatic coma ([facility]) 07/04/2024 Refill [facility] [place] [address] Lalita Moran DO Lumbar spondylosis 07/03/2024 Refill [facility] [address] [facility] [place] [address] Nohemi Randolph MD Type 2 diabetes mellitus with hyperglycemia, with long-term current use of insulin ([facility]) 07/03/2024 Refill [facility] [place] [address] Nohemi Randolph MD Type 2 diabetes mellitus with hyperglycemia, with long-term current use of insulin ([facility]) (Primary Dx) 06/24/2024 9:30 AM EST Clinical Support [facility] [place] [address] Mely Dubose, STEPHANIE Type 2 diabetes mellitus with hyperglycemia, with long-term current use of insulin ([facility]) 06/24/2024 Travel 06/21/2024 Refill [facility] [place] [address] Nohemi Randolph MD 06/13/2024 Refill [facility] [place] [address] Nohemi Randolph MD Lumbar spondylosis 06/03/2024 Telephone [facility] [place] [address] Mely Dubose, RN CGM start 06/03/2024 Refill [facility] [place] [address] Nohemi Randolph MD Type 2 diabetes mellitus with hyperglycemia, with long-term current use of insulin ([facility]) 05/27/2024 Telephone [facility] [address] Nohemi Randolph MD Appointment Request 05/18/2024 Refill [facility] MED[facility]INE [address] [place] [address] Nohemi Randolph MD Type 2 diabetes mellitus with hyperglycemia, with long-term current use of insulin ([facility]) 05/14/2024 Refill [facility] [address] [place] [address] Nohemi Randolph MD 05/10/2024 Telephone [facility] [address] [place] [address] Nohemi Randolph MD callback requested 05/08/2024 Orders Only [facility] [address] [place] [address] Nohemi Randolph MD 05/08/2024 Telephone [facility]INE [address] [place] [address] Nohemi Randolph MD Medication Question 05/07/2024 Refill [facility]INE [address] [place] [address] Nohemi Randolph MD Lumbar spondylosis 04/29/2024 9:30 AM EST Clinical Support [facility]INE [address] [place] [address] Patt Faria RN Chronic bilateral low back pain without sciatica (Primary Dx) 04/29/2024 Telephone [facility] MED[facility]INE [address] [place] [address] Nohemi Randolph MD Appointment Request 04/29/2024 Travel from Last 3 Months Immunizations Name Administration Dates Next Due Hep B, adult 07/01/2019,09/17/2018,08/06/2018 Influenza injectable quadriv alent IIV4 with preservative 07/01/2019 Influenza injectable quadriv alent preservative free 04/29/2021,03/08/2020 Influenza, High Dose Seasona l, Preservative Free 06/03/2024 Influenza, IIV3, injectable 04/29/2021,0 03/08/2020,07/01/2019,04/30,05/27/2015,03/02/2011 Influenza, Split (incl. bl[place] f[place] surface antigen) 03/18/2013,03/01/2012 Moderna Covid-19 Vaccine 12+ 07/22/2021,11/05/19 21,10/07/2020 Pfizer Covid-19 Vaccine 12+ 06/03/2024 Pneumococcal Polysaccharide PPSV23 04/24/2012, TD (adult), 2 Lf tetanus tox oid, preservative free, adsorbed 03/24/2005 Td (adult), unspecified 03/24/2005 Tdap 07/24/2013 Zoster, live 08/06/2018 Social History Tobacco Use Types Packs/Day Years Used Date Smoking Tobacco: Unknown Smokeless Tobacco: Never Tobacco Cessation:Counseling Given: Not Answered Alcohol Use Standard Drinks/Week Comments Never 0 [...] Orientation Straight 06/24/2024 1: 55 PM EST Last Filed Vital Signs Vital Sign Reading Time Taken Comments Blood Pressure 132/78 04/22/2024 11:44 AM EDT Pulse 100 04/22/2024 11:44 AM EDT Temperature 37.1 ??C (98.7 ??F) 04/22/2024 11:44 AM E DT Respiratory Rate 18 04/22/2024 11:44 AM EDT Oxygen Saturation 100% 03/12/2024 9:29 AM EDT Inhaled Oxygen Concentration - - Weight 71.9 kg (158 lb 9.6 oz) 04/22/2024 11:44 AM EDT Height 180.3 cm (5' 11 ) 04/22/2024 11:44 AM EDT Body Mass Index 22.12 04/22/2024 11:44 AM EDT Plan of Treatment Upcoming Encounters Date Type Department Care Team (Late st Contact Info) Description 09/17/2024 11:00 AM EDT Office Visit [facility] MEDICINE [address] [place] [address] Nohemi Randolph MD [address] [place] [phone] 10/29/2024 10:00 AM EDT Clinical Support [facility] MEDICINE [address] [place] [phone] Patt Faria, STEPHANIE Health Maintenance Due Date Last Done Comments CT Colonography 1957 Colonoscopy 1957 Colorectal Cancer Screening 1957 FIT DNA/Cologuard 1957 FIT 1957 FOBT 1957 Sigmoidoscopy 1957 Eye Exam 10/25/1967 Hepatitis A Vaccines (1 of 2 - Risk 2-dose series) 1976 Pneumococcal Vaccine: 50+ Years (2 of 2 - PCV) 04/24/2013 04/24/2012, 06/13/2005 RSV Patients and Patients Aged 60 years or older (1 - Risk 60-74 years 1-dose series) 2017 Zoster Vaccines (2 of 3) 10/01/2018 08/06/2018 DTaP/Tdap/Td Vaccines (2 - Td or Tdap) 07/24/2023 07/24/2013, 03/24/2005, 03/24/2005 Depression Screening 10/04/2023 10/03/2022, 10/04/19 Diabetes: Hemoglobin A1C 07/23/2024 024, 02/05/2024, 10/02/2023, Additional history exists Lipid Panel 10/12/2024 10/13/2023, 08/25, 12/12/2019 Alcohol/Substance Use Screening 02/04/2025 02/05/2024 Diabetes: Foot Exam 02/04/2025 02/05/2024 SDOH Screening 02/04/2025 02/05/2024 Tobacco Screening 04/25/2025 04/25/2024 Hepatitis B Vaccines Completed 07/01/2019, 09/17/2018, 08/06/2018 COVID-19 Vaccine Completed 06/03/2024, , 11/04/2020, Additional history exists Influenza Vaccine Completed 06/03/2024, , 04/29/2021, Additional history exists HIB Vaccines Aged Out No longer eligi ble based on patient's age to complete this topic HPV Vaccines Aged Out No longer eligi ble based on patient's age to complete this topic IPV Vaccines Aged Out No longer eligi ble based on patient's age to complete this topic Meningococcal Vaccine Aged Out No jossie deena eligible based on patient's age to complete this topic RSV under 20 months Aged Out No longe r eligible based on patient's age to complete this topic Rotavirus Vaccines Aged Out No longer eligible based on patient's age to complete this topic Procedures Procedure Name Priority Date/Time Associated Diagnosis Comments POCT AMISH-14 URINE DRUG SCREEN Routine 07/30/2024 10:51 AM EST Chronic bilateral low back pain without sciatica POCT AMISH-14 URINE DRUG SCREEN Routine 04/29/2024 9:48 AM EST Chronic bilateral low back pain without sciatica POCT GLYCATED HEMOGLOBIN, TOTAL Routine 04/22/2024 11:55 AM EDT Type 2 diabetes mellitus with hyperglycemia, with long-term current use of insulin ([facility]) LIPID PANEL, STANDARD Routine 10/13/2023 9:05 AM EDT Type 2 diabetes mellitus with hyperglycemia, with long-term current use of insulin ([facility]) from Last 3 Months or Most Recently Relevant to Health Maintenance Results * POCT AMISH-14 Urine Drug Screen (07/30/2024 10:51 AM EST) Only the most recent of2 resultswithin the time period is included. Pathologist [facility] THC Positive Opiate Screen, Urine Positive Urine Urine specimen obtained by clean catch procedure / Unknown 07/30/2024 10:51 AM EST Patt Vincent RN - 07/30/2024 10:51 AM EST UTOX cup Lot#[id number] Exp. 03/20/26 Internal Pass Control Nohemi Randolph MD POINT OF CARE TEST ENTER/EDIT ORDERABLES Final Result * (ABNORMAL) POCT HGB A1C (04/22/2024 11:55 AM EDT) Pathologist [facility] Hemoglobin A1C 10.7(A) 4.0 - 6.0 % QC Media Lot # [id number] Lot# Expiration Date 378 Blood 04/22/2024 11:5 5 AM EDT Nohemi Randolph MD POINT OF CARE TEST ENTER/EDIT ORDERABLES Final Result * (ABNORMAL) Lipid Panel, Standard (10/13/2023 9:05 AM EDT) Triglycerides 93 <150 mg/dL [facility] Comment:Desirable Triglyceri de: less than 150 mg/dLBorderline High Triglyceride 150-199 mg/dLHigh Triglyceride: 200-499 mg/dLVery High Triglyceride: greater than or equal to 5OO mg/dL Cholesterol 92 <200 mg/dL [facility] Comment:Desirable Cholestero l: less than 200 mg/dLBorderline High Cholesterol: 200-239 mg/dLHigh Cholesterol: greater than 239 mg/dL LDL Cholesterol Calculated 38 <100 mg/dL [facility] Comment:Desirable LDL: less than 100 mg/dLNear Optimal/Above Optimal LDL: 110- 129 mg/dLBorderline High LDL: 130-159 mg/dLHigh LDL: 160-189 mg/dLVery High LDL: greater than or equal to 190 mg/dL HDL Cholesterol 36(L) >40 mg/dL [facility] Comment:Desirable HDL: great er than 40 mg/dL Note: This HDL assay may give artificially low results in patients with liver disease. Blood Venous blood specimen / Unknown 10/13/2023 9:05 AM EDT 10/13/2023 11:29 AM EDT us Nohemi Randolph MD LAB BLOOD ORDERABLES Final Res ult [facility] [address] [place] [phone] from Last 3 Months or Most Recently Relevant to Health Maintenance Insurance [employer] MED[employer]ARE REPLACEMENT Care Teams Lens Examiner Relationship Specialty Start Date End Date Nohemi Randolph MD [address] [place] [address] PCP - General Family Medicine 05/17/22
--- OUTSIDE RECORDS SUMMARY | 2024-07-30 10:56 | XMS_ITS | Encounter Summary ---
Author Organization [employer] Address [address] [facility] 7t [place] [address] Care Team Providers Care Legal Compliance Officer Name Role Phone Nohemi Randolph MD Primary Care Provider [phone] Encounter Details Date Type Department Care Team (Late st Contact Info) Description 07/05/2024 Orders Only [facility] MEDICINE [address] [place], [place] [phone] Brynn Cahwla RN [address] [place] [address] Chronic hepatitis C without hepatic coma (CMS/HCC) Social History Tobacco Use Types Packs/Day Years [...] Description 09/17/2024 11:00 AM EDT Office Visit [address] [address] Nohemi Randolph MD [address] [place] [phone] 10/29/2024 10:00 AM EDT Clinical Support [address] [address] Patt Faria RN Scheduled Orders Name Type Priority Associated Diagnoses Orde r Schedule Hepatitis C Viral RNA, Quantitative, Real-Time PCR Lab Routine Chronic hepatitis C without hepatic coma (CMS/HCC) Expected: 07/05/2024 (Approximate), Expires: 07/05/2025 documented as of this encounter Visit Diagnoses Diagnosis Chronic hepatitis C without hepatic coma (CMS/HCC) documented in this encounter Additional Health Concerns Assessment Noted Time PHQ-9 Depression Total Score: 4 10/04/19 23 2:51 PM EDT documented as of this encounter Care Teams Legal Compliance Officer Relationship Specialty Start Date End Date Nohemi Randolph MD [address] [place] [phone] PCP - General Family Medicine 05/17/22 documented as of this encounter
[2024-08-01 14:58] LABS: HCV Log PCR <1.18 NOT DETECTED Log IU/mL (NOT DETECTED); HepC Viral Load <15 NOT DETECTED IU/mL (NOT DETECTED)
== END 2024-07-30 10:15 | disposition home or self-care (01) ==
LOC: HO.HHCL 10:14
PROVIDERS: Visit Provider Family Medicine
DX: B18.2 Chronic viral hepatitis C (principal)
CPT/HCPCS: 36415; 87522